=== PATIENT | female | born 1955 | race Caucasian/White ===

== ENCOUNTER → 2024-02-08 10:09 | Outpatient (REF) | payer MEDICARE, SELFPAY | LOC: WDC 10:09 | PROVIDERS: ATTENDING PHYSICIAN Physician Assistant Medical | DX: M94.0 Chondrocostal junction syndrome [Tietze] (principal) | CPT/HCPCS: 76642; 77062; 77066 ==

== ENCOUNTER → 2024-02-12 08:23 | Outpatient (REF) | payer MEDICARE, SELFPAY | LOC: HWRAD 08:23 | PROVIDERS: ATTENDING PHYSICIAN Physician Assistant Medical | DX: R10.9 Unspecified abdominal pain (principal); R19.5 Other fecal abnormalities | CPT/HCPCS: 74177; Q9967 ==

== ENCOUNTER → 2024-03-25 07:50 | Outpatient (REF) | payer MEDICARE, SELFPAY | LOC: HWRAD 07:50 | PROVIDERS: ATTENDING PHYSICIAN Physician Assistant Medical | DX: M54.2 Cervicalgia (principal) | CPT/HCPCS: 76536 ==